=== PATIENT | male | born 1990 | race Caucasian/White ===

== ENCOUNTER 2019-10-01 16:49 | Emergency (ER) | payer BC, OTHER ==
--- NOTE | 2019-10-01 17:04 | ERPHSYRPT ---
- History of Present Illness Time Seen by Provider: 10/01/19 17:04 Source: patient Exam Limitations: no limitations Physician History: 29 y/o right handed white male presents with accidental laceration to left index finger. 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 tetanus not utd. pt does not have a true allergy to codeine. just n/v. Timing/Duration: today, hour(s) (1) Quality: painful Severity: mild Location: hands (left index finger) Possible Causes: other (accidentally cut with knife) Associated Symptoms: denies symptoms Allergies/Adverse Reactions: codeine Adverse Reaction (Verified 10/01/19 17:05) - Review of Systems Constitutional: No Symptoms Eyes: No Symptoms Ears, Nose, & Throat: No Symptoms Respiratory: No Symptoms Cardiac: No Symptoms Abdominal/Gastrointestinal: No Symptoms Genitourinary Symptoms: No Symptoms Musculoskeletal: Injury (left index laceration ) Skin: Other (see above) Neurological: No Symptoms Psychological: No Symptoms Endocrine: No Symptoms Hematologic/Lymphatic: No Symptoms Immunological/Allergic: No Symptoms All Other Systems: Reviewed and Negative - Past Medical History Neurological History: No Pertinent History ENT History: No Pertinent History Cardiac History: No Pertinent History Respiratory History: No Pertinent History Endocrine Medical History: No Pertinent History Musculoskeletal History: No Pertinent History GI Medical History: No Pertinent History History: No Pertinent History Psycho-Social History: No Pertinent History Male Reproductive Disorders: No Pertinent History - Past Surgical History Neuro Surgical History: No Pertinent History Cardiac: No Pertinent History Respiratory: No Pertinent History Gastrointestinal: No Pertinent History Genitourinary: No Pertinent History Musculoskeletal: No Pertinent History Male Surgical History: No Pertinent History - Nursing Vital Signs Nursing Vital Signs: Initial Vital Signs Temperature 97.2 F 10/01/19 17:00 Pulse Rate 100 H 10/01/19 17:00 Respiratory Rate 16 10/01/19 17:00 Blood Pressure 133/103 10/01/19 17:00 O2 Sat by Pulse Oximetry 98 10/01/19 17:00 Pain Scale Pain Intensity 0 - Physical Exam General Appearance: no apparent distress, alert, anxiety Eye Exam: PERRL/EOMI, eyes nml inspection Ears, Nose, Throat Exam: normal ENT inspection, moist mucous membranes Neck Exam: normal inspection, non-tender, supple, full range of motion Respiratory Exam: No chest tenderness Gastrointestinal/Abdomen Exam: No tenderness Rectal Exam: not done Back Exam: normal inspection, normal range of motion, No CVA tenderness, No vertebral tenderness Extremity Exam: lacerations (2cm lac dorsal aspect left index finger. nv intact , no fb, no active bleeding, full tendon function) Neurologic Exam: alert, oriented x 3, cooperative, traffic signal mechanic II-XII nml as tested, normal mood/affect, nml cerebellar function, nml station & gait Skin Exam: normal color, warm, dry, laceration Lymphatic Exam: No adenopathy SpO2 Interpretation: normal Procedures - Laceration/Wound Repair Left Dorsal Finger Wound Location: Left, hand (index finger) Wound Length (cm): 2 Wound's Depth, Shape: superficial, linear Wound Explored: clean Irrigated: Yes Hibiclens Prep: Yes Anesthesia: local, 1% Lidocaine (3) Volume Anesthetic (ccs): 3 Wound Repaired With: sutures Suture Size/Type: 4-0, prolene Number of Sutures: 4 Layer Closure?: No Sterile Dressing Applied?: Yes Progress: 10/01/19 17:35 no complications. alejo well. - Course Nursing assessment & vital signs reviewed: Yes Ordered Tests: Active Orders 24 hr Category Date Time Status Wound Care STAT Care 10/01/19 17:27 Active - Progress Progress: improved Counseled pt/family regarding: diagnosis, need for follow-up - Departure Departure Disposition: Home Clinical Impression: Finger laceration Condition: Stable Critical Care Time: No Referrals: LENNY BROWN [Primary Care Provider] - Additional Instructions: keep dry for 24 hours. after 24 hours, may remove pressure dressing, wash daily with soap and water and apply daily antibiotic ointment. apply daily bandaid. suture removal in 8 to 10 days. follow up with primary doctor as needed. Prescriptions: Hydrocodone/APAP 5-325 Tab^^^ [[place] 5-325 Tablet^^^] 1 tab PO Q8H PRN PRN #6 tablet MDD 3 PRN Reason: Pain Cephalexin Mh 500 mg [Keflex 500 mg] 500 mg PO TID #15 capsule Ondansetron HCl [Zofran] 4 mg PO TID PRN #10 tablet PRN Reason: Nausea/Vomiting
[2019-10-01 17:05] VITALS: BP 133/103; PULSE 100; O2SAT 98
[2019-10-01] MEDS ORDERED: BACIGUENT PACKET TP ONE (17:28)
[2019-10-01] MEDS ORDERED: Adacel Vial IM ONE ×2 (17:28→17:59)
[2019-10-01] MEDS ORDERED: XYLOCAINE 1% HCL 20 ML MDV IJ ONE (17:28)
[2019-10-01] MEDS ORDERED: BACIGUENT PACKET ONE (18:02)
[2019-10-01] MEDS ORDERED: XYLOCAINE 1% HCL 20 ML MDV ONE (18:03)
== END 2019-10-01 18:25 | disposition home or self-care (01) ==
LOC: ED 16:49
DX: S61.211A Laceration without foreign body of left index finger without damage to nail, initial encounter (principal); W26.0XXA Contact with knife, initial encounter
CPT/HCPCS: 12001; 90471; 90715; 96372; 99284; A9270-GY